=== PATIENT | female | born 1980 | race Caucasian/White ===

== ENCOUNTER 2018-03-26 19:40 | Emergency (ER) | payer OTHER, SELFPAY ==
[2018-03-26] MEDS ORDERED: Sulfameth/Trimethoprim DS 800-160mg TAB ONE (20:54)
== END 2018-03-26 20:55 | disposition home or self-care (01) ==
LOC: SCSER 19:40
DX: L02.01 Cutaneous abscess of face (principal); F90.9 Attention-deficit hyperactivity disorder, unspecified type
CPT/HCPCS: 99282

== ENCOUNTER 2020-11-14 10:13 | Observation (INO) | payer SELFPAY ==
[2020-11-14 12:38] LABS: #Eosinphils 0.1 thou/uL (0.0-0.7); #Lymphocytes 1.5 thou/uL (1.20-3.40); #Monocytes 0.7 thou/uL (0.11-0.59); #Neutrophils 4.1 thou/uL (1.40-6.50); %Basophils 0.7 % (0.0-1.0); %Eosinophils 1.3 % (0.0-10.0); %Lymphocytes 23.6 % (21.0-51.0); %Monocytes 10.9 % (0.0-10.0); %Neutrophils 63.4 % (42.0-75.0); Mean Corpuscular HGB CONC 27.6 g/dL (32.0-36.0); Mean Corpuscular Hemoglobin 16.8 pg (27.0-31.0); Mean Corpuscular Volume 60.7 fL (78.0-98.0); Mean Platelet Volume 5.8 fL (7.4-10.4); Platelet Count 374 thou/uL (130-400); RBC Distribution Width 19.4 % (11.5-14.5); Red Blood Cell (RBC) Count 3.57 mill/uL (4.20-5.40); White Blood Cell (WBC) Count 6.5 thou/uL (4.8-10.8)
[2020-11-14 12:39] LABS: Reflex for Review?? YES
[2020-11-14 12:49] LABS: ALT (SGPT) 11 U/L (8-55); AST (SGOT) 18 U/L (5-34); Acetaminophen Less than 6.0 mcg/mL (10.0-30.0); Albumin 3.9 g/dL (3.5-5.0); Alcohol Less than 10 mg/dL (Less than 10); Alkaline Phosphatase 70 U/L (40-110); Anion Gap 13 mmol/L (10-20); BUN (Urea Nitrogen) 13 mg/dL (7.0-18.7); Bilirubin, Total 0.7 mg/dL (0.2-1.2); CK (CPK) 84 U/L (29-168); Calc. Creatinine Clearance 0 mL/min (70-130); Calcium 8.6 mg/dL (7.8-10.44); Carbon Dioxide 23 mmol/L (22-29); Chloride 104 mmol/L (98-107); Globulin 3.3 g/dL (2.4-3.5); Glucose 88 mg/dL (70-105); Potassium 3.2 mmol/L (3.5-5.1); Protein, Total 7.2 g/dL (6.0-8.3); Salicylate Less than 8.0 mg/dL (15.0-30.0); Sodium 137 mmol/L (136-145)
[2020-11-14 12:57] LABS: Hypochromia MARKED = >30 cells (100X) (0-5/hpf); MDiff Complete? YES; Microcytosis MARKED = >30 cells (100X) (0-5/hpf); Ovalocytes SLIGHT = 2-5 cells (100X) (0-1/hpf); Platelet Morphology Comment Appears Adequate; Polychromasia MODERATE = 3-4 cells (100X) (0-2/hpf)
[2020-11-14 13:46] LABS: Bilirubin Negative (Negative); Blood, Urine Negative (Negative); Clarity Clear (Clear); Glucose, Urine (Dipstick) Normal (Negative); Ketone, Urine 40 mg/dL (Negative); Leukocyte Negative Leu/uL (Negative); Nitrite Negative (Negative); Protein, Urine (Dipstick) 20 mg/dL (Neg-Trace); Specific Gravity, Urine 1.029 (1.002-1.036); pH, Urine 5.5 (5.0-9.0)
[2020-11-14 13:47] LABS: Pregnancy Test - Urine (BHCG) Negative (Negative); Pregu Control Background? CLEAR/WHITE (CLR/WHITE); Pregu Control Bar Appear? YES (CONTROL BAR); Specific Gravity 1.029 (1.002-1.036)
[2020-11-14 14:06] LABS: Amphetamine Detected (NotDetected); Barbiturates Screen Not Detected (NotDetected); Benzodiazepine Screen Not Detected (NotDetected); Cocaine Metabolite Screen Not Detected (NotDetected); Medtox Control Line Valid? VALID (VALID); Medtox Reader # READER 4; Methadone Not Detected (NotDetected); Methamphetamine Detected (NotDetected); Opiate Screen Not Detected (NotDetected); Oxycodone Screen Not Detected (NotDetected); Phencyclidine (PCP) Not Detected (NotDetected); THC/Cannabinoid Screen Not Detected (NotDetected); Tricyclic Screen Not Detected (NotDetected)
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
[2020-11-14] MEDS ORDERED: Ondansetron ODT 4 MG TAB PO PRN (14:40)
[2020-11-14] MEDS ORDERED: Calcium Carbonate 500 MG ChewTAB PO PRN (14:40)
[2020-11-14] MEDS ORDERED: hydrALAZINE 20 MG/ML VIAL SLOW IVP PRN (16:02)
[2020-11-14 18:30] LABS: Iron 48 ug/dL (50-170); Iron Binding Capacity, Total 403 mcg/dL (265-497)
[2020-11-14 18:32] LABS: CRP (Inflammatory) 0.68 mg/dL (= or < 0.5)
[2020-11-14] MEDS ORDERED: Acetaminophen 500 MG TAB ONE (19:07)
[2020-11-15 01:20] VITALS: BMI 29.9
[2020-11-15] MEDS ORDERED: hydrOXYzine 25 MG TAB PO SCH (01:30)
[2020-11-15 03:53] LABS: #Basophils 0.1 thou/uL (0.0-0.2); #Eosinphils 0.3 thou/uL (0.0-0.7); #Lymphocytes 3.1 thou/uL (1.20-3.40); #Monocytes 1.3 thou/uL (0.11-0.59); #Neutrophils 4.1 thou/uL (1.40-6.50); %Basophils 1.3 % (0.0-1.0); %Eosinophils 3.3 % (0.0-10.0); %Lymphocytes 35.3 % (21.0-51.0); %Monocytes 14.6 % (0.0-10.0); %Neutrophils 45.6 % (42.0-75.0); Anisocytosis MODERATE=16-30 cells (100X) (0-5/hpf); Hemoglobin 8.3 g/dL (12.0-16.0); MDiff Complete? YES; Mean Corpuscular HGB CONC 29.4 g/dL (32.0-36.0); Mean Corpuscular Hemoglobin 19.1 pg (27.0-31.0); Mean Corpuscular Volume 65.1 fL (78.0-98.0); Mean Platelet Volume 6.2 fL (7.4-10.4); Platelet Count 378 thou/uL (130-400); Platelet Morphology Comment Appears Adequate; Red Blood Cell (RBC) Count 4.34 mill/uL (4.20-5.40); White Blood Cell (WBC) Count 8.9 thou/uL (4.8-10.8)
--- NOTE | 2020-11-15 06:14 | PDOC.FM ---
- Subjective Subjective: Denies SI at this time. Reports suicidal thoughts come and go in her mind without a plan. Last SI was in the ED. Does not desire cutting her wrists at this time. Reports anxiety overnight relieved by hydroxyzine 25mg. Denies headache, vision changes, auditory/visual/tactile hallucinations, tremors, chest pain, SOB, nausea and abdominal pain. Is open to speaking with [facility] but notes that she wants to go home after hospitalization. - Objective MAR Reviewed: Yes Vital Signs & Weight: Vital Signs (12 hours) Temp Pulse Resp BP Pulse Ox 11/15/20 03:53 97.8 F 85 16 126/58 L 98 11/14/20 19:35 97.7 F 104 H 16 113/64 100 Weight Weight 74.117 kg Result Diagrams: 11/15/20 02:17 11/15/20 08:27 Phys Exam - Physical Examination Constitutional: NAD HEENT: moist MMs, sclera anicteric Neck: full ROM Respiratory: no wheezing, clear to auscultation bilateral Cardiovascular: RRR Faint systolic murmur best auscultated at left 2nd intercostal space Gastrointestinal: soft, non-tender, positive bowel sounds Musculoskeletal: no edema Neurological: moves all 4 limbs Psychiatric: A&O x 3 Deviation from normal: Anxious appearing, poor eye contact, no delusions Normal speech pattern Skin: no rash Dx/Plan - Plan Plan: 40 y/o F admitted to medical obs for symptomatic anemia and SI for medical clearance Suicidal ideation - no plan formulated, hx of self harming behavior, last cut to wrist 3 months ago - Sitter in room - Consult [facility] Symptomatic microcytic anemia Hgb 6, MCV 60 upon admission. Decreased iron at 52 and % saturation at 12. Normal TIBC. Consistent with iron deficiency anemia. Possibly due to heavy uterine bleeding -Improved to 8.3 s/p 2 units pRBC -Haptoglobin and peripheral smear pending Systolic murmur With IVDA, concerned for endocarditis although patient is asymptomatic. CRP and ESR mildly elevated. -F/u echo Methamphetamine abuse Previously on and off use past 7 years, but daily use over the last few months. Began IVDU in 06/14. -F/u [facility] eval -CM consulted for rehabilitation options if patient is willing -Counselled on cessation Heavy menstrual bleeding Hx of irregular menstruation with heavy bleeding for 8-10 days. UPT negative -Endometrial biopsy outpatient for further investigation Hypokalemia K 3.2 on admission. -Monitor with am labs. Replete as indicated PCP: None, CC Code: FULL Dispo: Pending [facility] evaluation and medical clearance Addendum - Attending - Attending Attestation Date/Time: 11/15/20 7488 I personally evaluated the patient and discussed the management with Dr. Reeder. I agree with the History, Examination, Assessment and Plan documented above with any addition or exceptions noted below. Doing well this AM. No s/s infection. Her murmur is 1/6 this AM. Cancel TTE - d/w the patient who agrees. It sounds like she plans on using, which we discussed. Medically cleared. Pending [facility] eval.
[2020-11-15] MEDS ORDERED: hydrOXYzine 25 MG TAB PO PRN (08:25)
[2020-11-15 08:56] LABS: ALT (SGPT) 10 U/L (8-55); AST (SGOT) 15 U/L (5-34); Albumin 3.5 g/dL (3.5-5.0); Alkaline Phosphatase 65 U/L (40-110); Anion Gap 12 mmol/L (10-20); BUN (Urea Nitrogen) 11 mg/dL (7.0-18.7); Bilirubin, Total 0.8 mg/dL (0.2-1.2); Calc. Creatinine Clearance 120 mL/min (70-130); Calcium 8.4 mg/dL (7.8-10.44); Carbon Dioxide 24 mmol/L (22-29); Chloride 107 mmol/L (98-107); Globulin 3.2 g/dL (2.4-3.5); Glucose 87 mg/dL (70-105); Magnesium 1.8 mg/dL (1.6-2.6); Potassium 3.6 mmol/L (3.5-5.1); Protein, Total 6.7 g/dL (6.0-8.3); Sodium 139 mmol/L (136-145)
[2020-11-15 13:50] LABS: SARS-CoV-2 PCR by NAA Not Detected (NotDetected)
[2020-11-15 15:29] VITALS: BP 124/58; TEMP 97.8
--- NOTE | 2020-11-16 13:34 | DIS ---
DATE OF ADMISSION: 11/14/2020 DATE OF DISCHARGE: 11/15/2020 RESIDENT: Bobbi Reeder MD. ADMITTING ATTENDING: Chapo Ribeiro MD. DISCHARGE ATTENDING: Chapo Ribeiro MD. CONSULTS: [facility]. PROCEDURES: Echo showed ejection fraction of 50% to 55%. PRIMARY DIAGNOSES: 1. Suicidal ideation. 2. Symptomatic microcytic iron deficiency anemia, resolved SECONDARY DIAGNOSES: 1. Systolic murmur. 2. Methamphetamine use. 3. Chronic heavy menstrual bleeding. 4. Transient hypokalemia. DISCHARGE MEDICATIONS: None. DISCONTINUED MEDICATIONS: None. HISTORY OF PRESENT ILLNESS: The patient is a 40-year-old female with a history of bipolar disorder, not currently on medication, who presented to the ED with suicidal ideation without plan. Initial lab work in the ED showed a hemoglobin of 6 and MCV 60 with decreased iron level at 52 and decreased percent saturation at 12, normal TIBC. The patient received 2 units of packed red blood cells in the ED with improvement of hemoglobin to 8.3 the next morning. The patient was admitted for medical clearance prior to [facility] evaluation. Overnight, the patient reported resolution of suicidal ideation. She denied a desire to cut her wrists, which she does have a history of. She reported anxiety that was relieved by hydroxyzine 25 mg p.o. once. She was noted to have a systolic murmur during admission. Echo was completed and showed an ejection fraction of 50% to 55%. The patient was deemed stable from [facility] evaluation on 11/15 afternoon. [facility] evaluated the patient and deemed that she was stable to be discharged home in the care of her sister with close followup with an outpatient. She was counseled for her methamphetamine use as well as rehab options which she declined. DISPOSITION: Guarded due to recent suicide ideation, although patient now denies SI and was approved to DC home after evaluation by [facility]. DISCHARGE INSTRUCTIONS: 1. Location: Home with sister. 2. Diet: Regular. 3. Activity: As tolerated. 4. The patient was instructed to establish with PCP within one week. She will need to undergo further evaluation of iron deficiency anemia as well as endometrial biopsy for chronic heavy menstrual bleeding. She will also have close followup with [facility]. Job ID: [id number] [facility]
--- NOTE | 2020-12-01 21:52 | EKG ---
Test Reason : Blood Pressure : / mmHG Vent. Rate : 082 BPM Atrial Rate : 082 BPM P-R Int : 136 ms QRS Dur : 078 ms QT Int : 392 ms P-R-T Axes : 031 029 070 degrees QTc Int : 457 ms Normal sinus rhythm Normal ECG Confirmed by DANIEL BARAJAS DO ([id number]), mapping editor DANITA GARNER ([id number]) on 12/01/2020 9:51:51 PM Referred By: Confirmed By:DANIEL BARAJAS DO
== END 2020-11-15 19:14 | disposition home or self-care (01) ==
LOC: ERS 10:13 → ONC 14:27
PROVIDERS: ADMIT Emergency Medicine; ATTEND Emergency Medicine
DX: R45.851 Suicidal ideations (principal); D50.9 Iron deficiency anemia, unspecified; R01.1 Cardiac murmur, unspecified; F15.10 Other stimulant abuse, uncomplicated; N93.9 Abnormal uterine and vaginal bleeding, unspecified; F41.9 Anxiety disorder, unspecified; E87.6 Hypokalemia; F31.9 Bipolar disorder, unspecified; N92.1 Excessive and frequent menstruation with irregular cycle; F90.9 Attention-deficit hyperactivity disorder, unspecified type; Z79.899 Other long term (current) drug therapy; Z20.822 Contact with and (suspected) exposure to COVID-19
CPT/HCPCS: 36415; 36430; 80053; 80306; 80307; 81003; 81025; 82550; 82728; 83010; 83540; 83550; 83735; 84443; 85025; 85060; 85652; 86140; 86850; 86870; 86900; 86901; 86905; 86922; 87040; 87635; 93005; 93306; G0378; P9016; U0003; U0005

== ENCOUNTER 2022-05-12 17:45 | Emergency (ER) | payer SELFPAY | END 2022-05-12 18:24 | disposition home or self-care (01) | LOC: ERS 17:45 | DX: T67.5XXA Heat exhaustion, unspecified, initial encounter (principal) | CPT/HCPCS: 99282 ==

== ENCOUNTER 2022-06-28 09:12 | Emergency (ER) | payer OTHER, SELFPAY | END 2022-06-28 10:55 | disposition home or self-care (01) | LOC: ERS 09:12 | DX: M25.512 Pain in left shoulder (principal); V89.2XXA Person injured in unspecified motor-vehicle accident, traffic, initial encounter ==

== ENCOUNTER 2022-07-02 12:18 | Emergency (ER) | payer OTHER, SELFPAY ==
[2022-07-02] MEDS ORDERED: Ketorolac Tromethamine 30 MG/ML VIAL ONE (14:51)
== END 2022-07-02 14:57 | disposition home or self-care (01) ==
LOC: ERS 12:18
DX: M25.512 Pain in left shoulder (principal); V89.9XXA Person injured in unspecified vehicle accident, initial encounter
CPT/HCPCS: 96372; J1885